=== PATIENT | female | born 1980 | race Two or more races ===

== ENCOUNTER 2017-08-01 08:59 | Emergency (ER) | payer OTHER ==
[2017-08-01 09:10] VITALS: BP 105/60; PULSE 85; TEMP 98; BMI 26.4
--- NOTE | 2017-08-01 09:21 | PDOC ---
History of Present Illness - General Chief Complaint: Cold Symptoms Stated Complaint: SOB Time Seen by Provider: 08/01/17 09:11 History Source: Patient Exam Limitations: No Limitations - History of Present Illness Initial Comments: CHIEF COMPLAINT: 37 y/o afebrile female here with dry cough x 1 week. HISTORY OF PRESENT ILLNESS: The patient [place] here during the [place]. She denies f/c, n/v/d, runny nose, nasal congestion, productive cough, earache, sore throat, CP, SOB and all other symptoms. She hasn't taken anything for the symptoms. Vital signs on arrival are within normal limits. REVIEW OF SYSTEMS: GENERAL/CONSTITUTIONAL: No fever/chills. No weakness. No weight change. HEAD, EYES, EARS, NOSE AND THROAT: No change in vision. No ear pain or discharge. No sore throat. CARDIOVASCULAR: No chest pain or shortness of breath. RESPIRATORY: +cough. No wheezing, or hemoptysis. GASTROINTESTINAL: No abd pain, nausea, vomiting, diarrhea. MUSCULOSKELETAL: No joint or muscle swelling or pain. No neck or back pain. SKIN: No rash or easy bruising. PHYSICAL EXAM: GENERAL: The patient is awake, alert, and fully oriented, in no acute distress. She is very well appearing with intermittent dry cough. HEAD: Normal with no signs of trauma. ENT: Pupils equal, round and reactive to light, extraocular movements intact, sclera anicteric, conjunctiva clear. Inflammed nasal turbinates. TMs normal b/l LUNGS: Clear to auscultation bilaterally. Normal excursion. No respiratory distress or use of accessory muscles. CV: RRR, S1/S2, no MRG. Cap refill < 2 sec. NEUROLOGICAL: Normal speech, normal gait. CN II-XII grossly intact. SKIN: Warm, dry, normal turgor, no rashes or lesions noted. Past History - Past Medical History Allergies/Adverse Reactions: Allergies Allergy/AdvReac Type Severity Reaction Status Date / Time Penicillins Allergy Verified 08/01/17 09:03 Home Medications: Ambulatory Orders Fluticasone Propionate [Flonase Allergy Relief] 1 spray NS BID #1 bottle Cancer: Yes (pelvis) COPD: No - Surgical History Abdominal Surgery: Yes (ca surgery) - Suicide/Smoking/Psychosocial Hx Smoking History: Current every day smoker Have you smoked in the past 12 months: Yes Number of Cigarettes Smoked Daily: 20 Information on smoking cessation initiated: Yes 'Breaking Loose' booklet given: 08/01/17 Hx Alcohol Use: No Drug/Substance Use Hx: No Substance Use Type: None *Physical Exam - Vital Signs Last Vital Signs Temp Pulse Resp BP Pulse Ox 98.0 F 85 18 105/60 100 08/01/17 09:04 08/01/17 09:04 08/01/17 09:04 08/01/17 09:04 08/01/17 09:04 Medical Decision Making - Medical Decision Making A/P: 37 y/o female with allergic cough. Plan is to discharge patient to home with rx for flonase and instructions for OTC allergy meds. Suggested humidifier at night and sitting up to sleep. Pt instructed to return to the ER with any worsening or concerning symptoms. The patient verbalizes understanding of all instructions, has no further questions and is awaiting discharge. *DC/Admit/Observation/Transfer Diagnosis at time of Disposition: Cough, Seasonal allergies - Discharge Dispostion Disposition: HOME Condition at time of disposition: Good - Referrals - Patient Instructions Printed Discharge Instructions: DI for Cough -- Adult, Allergies (Alternative Therapy) Additional Instructions: Discharge Instructions: -You have seasonal allergies -1 prescription for a nose spray has been sent to your pharmacy -Please also take over the counter robitussin and over the counter claritin for cough -Use a humidifier in your room at night to help with cough -Sit up to sleep to help with cough -Return to the ER with any worsening or concerning symptoms Instrucciones de descarga: -Tienes alergias estacionales -1 receta para un spray nasal gary sido enviado a frank farmacia -Por favor, tambin tome el contador de robitussin y el contador de claritin para la tos -Utilice un humidificador en frank habitacin por la noche para ayudar con la tos -Sintate a dormir para ayudar con la tos -Volver a la tiago de urgencias con cualquier empeoramiento o sntomas Print Language: BELGIAN - Post Discharge Activity
== END 2017-08-01 09:47 | disposition home or self-care (01) ==
LOC: JERFT 08:59
DX: J30.2 Other seasonal allergic rhinitis (principal); F17.210 Nicotine dependence, cigarettes, uncomplicated; Z85.89 Personal history of malignant neoplasm of other organs and systems
CPT/HCPCS: 99281-25